=== PATIENT | male | born 1955 | race Caucasian/White ===

== ENCOUNTER 2016-08-30 14:30 | Outpatient (RCR) | payer OTHER | END 2016-09-16 15:44 | disposition home or self-care (01) | LOC: PT 14:30 | PROVIDERS: ATTEND Orthopaedic Surgery | DX: Z47.1 Aftercare following joint replacement surgery (principal); Z96.652 Presence of left artificial knee joint; M25.662 Stiffness of left knee, not elsewhere classified ==